=== PATIENT | female | born 1985 | race Caucasian/White ===

== ENCOUNTER 2019-05-05 10:37 | Inpatient (IN) | payer OTHER, SELFPAY ==
[2019-05-05] MEDS ORDERED: Promethazine HCl 25 MG/ML VIAL IM PRN ×3 (10:59→17:04)
[2019-05-05] MEDS ORDERED: Ondansetron PF 4 MG/2 ML Vial IVP PRN ×3 (10:59→17:04)
[2019-05-05] MEDS ORDERED: Lactated Ringer's 1,000 ML IV SCH (10:59)
[2019-05-05] MEDS ORDERED: Bicitra 30 ML UDCUP PO SCH (10:59)
[2019-05-05] MEDS ORDERED: CEFAZOLIN 2 GM in Premix Bag 1 BAG IVPB SCH (10:59)
[2019-05-05] MEDS ORDERED: hydrALAZINE 20 MG/ML VIAL SLOW IVP PRN ×2 (10:59→14:50)
[2019-05-05 11:19] VITALS: BMI 29.9
[2019-05-05 11:25] LABS: Hemoglobin 11.9 g/dL (12.0-16.0); Mean Corpuscular HGB CONC 33.9 g/dL (32.0-36.0); Mean Corpuscular Hemoglobin 31.8 pg (27.0-31.0); Mean Corpuscular Volume 93.8 fL (78.0-98.0); Mean Platelet Volume 8.4 fL (7.4-10.4); Platelet Count 196 thou/uL (130-400); RBC Distribution Width 15.3 % (11.5-14.5); Red Blood Cell (RBC) Count 3.74 mill/uL (4.20-5.40); White Blood Cell (WBC) Count 9.8 thou/uL (4.8-10.8)
[2019-05-05] MEDS ORDERED: FLU VACC QS2019-20(6MOS UP)/PF 60 MCG/0.5 ML SYRINGE IM ONE (11:45)
--- NOTE | 2019-05-05 12:02 | PDOC.LDHP ---
Labor and Delivery H&P Chief complaint: scheduled section HPI: 33yo A3 at 40w0d by first trimester sono for RCS. No complaints. Current gestational age (weeks): 40 Due date: 05/05/19 Dating criteria: first trimester ultrasound Grav: 7 Para: 3 OB History Details: hx of amniotic fluid embolism in first , intubated in ICU, DIC, transfusion 25U PRBC Current complications: none Abnormal US findings: No Past Medical History: denies Current medications: pre- vitamins, iron Previous surgical history: low tranverse CS Allergies/Adverse Reactions: Allergies Allergy/AdvReac Type Severity Reaction Status Date / Time No Known Allergies Allergy Unverified 05/05/19 11:02 Social history: none - Physical Exam Vital signs reviewed and normal: yes General: NAD Heart: RRR Lungs: CTAB Abdomen: gravid Extremeties: no edema FHT: category 1 [place] contractions every: none - OB Labs Blood type: O RH: negative Antibody Screen: negative HIV: negative RPR: negative HEPSAg: negative 1 hour GCT: positive 3 hour GTT: neg for GDM GBS: negative Urine drug screen: negative Rubella: immune - Assessment L&D Assessment: scheduled repeat section - Plan Plan: admit to L&D, to OR for section, informed consent obtained, anesthesia consult for pain management
--- NOTE | 2019-05-05 12:07 | PDOC.OPDEL ---
OB Operative/Delivery Note Delivery Dr/Surgeon: Carlos Assist: Beto Pre-Delivery Diagnosis: scheduled section Procedure/Post Delivery Dx: repeat low transverse CS Weeks gestation: 40 Anesthesia: spinal - Additional Findings/Plan Placenta delivered: spontaneous findings: low transverse hysterotomy without extension, normal uterus, normal tubes, normal ovaries Post delivery plan: routine recovery
[2019-05-05 12:09] LABS: HBSAg Index 0.17 S/CO (0-0.99); Hep B Surf Ag Non-Reactive S/CO (NonReactive); Syphilis Antibody Nonreactive (Nonreactive); Syphilis Antibody Index 0.03 S/CO (<1.00 Non-Reactive)
[2019-05-05] MEDS ORDERED: Oxytocin 10 UNITS/ML VIAL ONE (12:17)
[2019-05-05] MEDS ORDERED: MORPHINE 5 MG/10 ML PF VIAL ONE (12:17)
[2019-05-05] MEDS ORDERED: Ondansetron PF 4 MG/2 ML Vial ONE (12:18)
[2019-05-05] MEDS ORDERED: ePHEDrine/0.9% NaCl/PF SYRINGE 50 mg/10 ml ONE (12:18)
[2019-05-05] MEDS ORDERED: PHENYLEPHRINE-NS 100 MCG/ML 10 ML SYRINGE ONE (13:00)
[2019-05-05] MEDS ORDERED: Ketorolac Tromethamine 30 MG/ML VIAL ONE (13:08)
[2019-05-05] MEDS ORDERED: NS / Oxytocin 40 units/1000ml 1,000 ML ONE ×2 (14:04→14:05)
[2019-05-05] MEDS ORDERED: Bisacodyl 10 MG SUPP PR PRN (14:50)
[2019-05-05] MEDS ORDERED: Zolpidem Tartrate 5 MG TAB PO PRN (14:50)
[2019-05-05] MEDS ORDERED: HYDROcodone/Acetaminophen 5/325 mg Tablet PO PRN ×2 (14:50)
[2019-05-05] MEDS ORDERED: Acetaminophen 325 MG TAB PO PRN (14:50)
[2019-05-05] MEDS ORDERED: Lanolin Ointment 7 GM TUBE TOP PRN (14:50)
[2019-05-05] MEDS ORDERED: diphenhydrAMINE 25 MG CAP PO PRN (14:50)
[2019-05-05] MEDS ORDERED: Promethazine HCl 25 MG SUPP PR PRN (17:04)
[2019-05-05] MEDS ORDERED: Ondansetron HCl/PF 4 MG/2 ML Vial IVP PRN (17:04)
[2019-05-05] MEDS ORDERED: diphenhydrAMINE 50 MG/ML VIAL IVP PRN (17:04)
[2019-05-05] MEDS ORDERED: Naloxone HCl 0.4 mg/ml Vial IVP PRN ×2 (17:04)
[2019-05-05] MEDS ORDERED: Meperidine HCl/PF 25 MG/ML VIAL SLOW IVP PRN (17:04)
[2019-05-05] MEDS ORDERED: HYDROmorphone 2 MG/ML VIAL SLOW IVP PRN (17:04)
[2019-05-05] MEDS ORDERED: Naloxone HCl 0.4 mg/ml Vial IV PRN (17:04)
[2019-05-05] MEDS ORDERED: L&D-Morphine 4 MG/ML VIAL SLOW IVP PRN (17:04)
[2019-05-05] MEDS ORDERED: Ketorolac Tromethamine 30 MG/ML VIAL IVP SCH (17:15)
[2019-05-05] MEDS ORDERED: Communication Order-Pharmacy FS SCH (17:15)
[2019-05-05] MEDS: Docusate Calcium (SURFAK) 240 MG CAP PO SCH (19:33)
[2019-05-05] MEDS: Ketorolac Tromethamine 30 MG/ML VIAL IVP PRN (21:04)
[2019-05-06] MEDS: Ferrous Sulfate 325 MG TAB PO SCH ×3 (00:19→19:20)
[2019-05-06] MEDS: Ibuprofen 800 MG TAB PO SCH ×5 (00:20→17:49)
[2019-05-06] MEDS ORDERED: Sodium Chloride 0.9% 0 ML ONE (03:57)
[2019-05-06] MEDS: Ketorolac Tromethamine 30 MG/ML VIAL IVP PRN (04:03)
[2019-05-06] MEDS ORDERED: Sodium Chloride 0.9% 10 ML ONE (04:08)
[2019-05-06] MEDS ORDERED: Zolpidem Tartrate 5 MG TAB PO PRN (05:15)
[2019-05-06] MEDS ORDERED: HYDROcodone/Acetaminophen 5/325 mg Tablet PO PRN (05:15)
--- NOTE | 2019-05-06 05:32 | PDOC.PP ---
Post Progress Note Post Day #: 1 Subjective: Patient doing well. No significant overnight events. Patient tolerating PO, passing flatus, ambulating. Lochia minimal. PO intake tolerated: yes Flatus: yes Ambulation: yes Vital Signs (12 hours) Temp Pulse Resp BP Pulse Ox 05/05/19 23:30 98.7 F 88 16 125/68 05/05/19 19:40 98.7 F 99 16 117/60 98 05/05/19 17:55 99.1 F 85 12 115/59 L 95 Weight Weight 81.647 kg - Physical Examination General: NAD Cardiovascular: RRR Respiratory: non-labored breathing Abdominal: + bowel sounds, lochia (minimal), no distention, appropriately TTP Fundus firm & at: below umbilicus Deviation from normal: Pressure dressing in place of C/S incision. Dressing clean, dry, intact. Neurological: no gross focal deficits Psychiatric: A&Ox3, normal affect Result Diagrams: 05/05/19 11:13 Additional Labs: Post Labs Blood Type O NEGATIVE 05/05/19 11:45 Hep Bs Antigen Non-Reactive S/CO (NonReactive) 05/05/19 11:13 (1) Term Code(s): Z34.90 - ENCNTR FOR SUPRVSN OF NORMAL , UNSP, UNSP TRIMESTER Status: Acute (2) S/P repeat low transverse Code(s): Z98.891 - HISTORY OF UTERINE SCAR FROM PREVIOUS SURGERY Status: Acute - Assessment/Plan Routine PP care - Post-op day #1 s/p rLTCS - Meeting all milestones - Rh negative - GBS negative - Rubella immune - C/S pressure dressing in place. Clean and intact. - Encourage ambulation Hx amniotic fluid embolism in previous Dispo: Plan for D/C on Wednesday
[2019-05-06 08:08] LABS: Mean Corpuscular HGB CONC 33.6 g/dL (32.0-36.0); Mean Corpuscular Hemoglobin 31.6 pg (27.0-31.0); Mean Platelet Volume 8.3 fL (7.4-10.4); Platelet Count 169 thou/uL (130-400); RBC Distribution Width 15.2 % (11.5-14.5); Red Blood Cell (RBC) Count 3.49 mill/uL (4.20-5.40); White Blood Cell (WBC) Count 10.4 thou/uL (4.8-10.8)
[2019-05-06] MEDS ORDERED: Adacel (T-DAP) 0.5 ML SYRINGE IM ONE (09:00)
[2019-05-06] MEDS: Simethicone Chewable 80 MG TAB PO PRN ×3 (10:30→17:43)
[2019-05-06] MEDS: Prenatal Vitamin 1 TAB PO SCH (10:31)
[2019-05-06] MEDS: Docusate Calcium (SURFAK) 240 MG CAP PO SCH ×2 (10:31→19:20)
[2019-05-06] MEDS: HYDROcodone/Acetaminophen 5/325 mg Tablet PO PRN ×3 (14:06→21:20)
--- NOTE | 2019-05-06 15:58 | OP ---
DATE OF PROCEDURE: 05/05/2019 PREOPERATIVE DIAGNOSES: 1. Intrauterine at 40 weeks 0 days. 2. Prior x2. POSTOPERATIVE DIAGNOSES: 1. Intrauterine at 40 weeks 0 days. 2. Prior x2. PROCEDURE PERFORMED: Repeat low transverse section via Pfannenstiel skin incision. ANESTHESIA: Spinal. MANAGER FIELD SERVICE: Maegan Pérez DO ESTIMATED BLOOD LOSS: 700 mL. INTRAVENOUS FLUIDS: 1500 mL crystalloid. URINE OUTPUT: 500 mL clear urine. COMPLICATIONS: None. DRAINS: Spring catheter. PATHOLOGY: None. FINDINGS: Male infant, cephalic presentation, Apgars 9 and 9. Weight pending. Hysterotomy without extension. Normal uterus, ovaries, and tubes bilaterally. OPERATIVE TECHNIQUE: The patient was taken to the operating room, where spinal anesthesia was obtained without difficulty. The patient was prepped and draped in a sterile fashion in the dorsal supine position with a leftward tilt. After ensuring adequacy of anesthesia, a Pfannenstiel skin incision was made and carried down to the underlying subcutaneous tissue with the knife. The fascia was nicked in the midline with a knife and carried laterally with the Lowe scissors. The superior aspect of the fascia was tented with two Kamilla's and dissected off the rectus with the Lowe scissors. The inferior aspect of the fascia was tented with two Kamilla's and dissected off the rectus down the pubic symphysis. The peritoneum was bluntly entered into and manually retracted. The Willard O retractor was placed and the vesicouterine peritoneum was incised with the Metzenbaum's. Lower uterine segment was extremely thin and a window was present. The lower uterine segment was incised in a transverse fashion and extended with a Pena maneuver. The infant's head was brought to the hysterotomy and delivered with fundal pressure atraumatically. The infant's cord was clamped and handed to awaiting Stephon team. The placenta was allowed to spontaneously deliver. The uterus was exteriorized, cleared of all clots and debris, and the posterior cul-de-sac was left out. The uterus was placed back into the abdomen, and the hysterotomy was repaired with a #1 Monocryl in a running locking fashion with excellent hemostasis in reapproximation. The pelvis was copiously irrigated and suctioned, and hemostasis was again noted. The Willard O retractor was removed. The rectus muscles were examined and cauterized of any oozing. The fascia was reapproximated with a 0 PDS x2 sutures with excellent reapproximation. The subcutaneous tissue was irrigated and cauterized of any bleeders and reapproximated with a 2-0 plain gut in a running fashion. The skin was closed with 4-0 Monocryl in a subcuticular fashion. Dermabond was applied as well as pressure dressing. The patient tolerated the procedure well. Sponge, lap, and needle counts were correct x2. The patient was taken to recovery room in stable condition. The patient received Ancef 2 g prior to the procedure. Job ID: [id number]
[2019-05-07] MEDS: Ibuprofen 800 MG TAB PO SCH ×4 (01:58→21:03)
[2019-05-07] MEDS: HYDROcodone/Acetaminophen 5/325 mg Tablet PO PRN ×4 (01:58→19:38)
--- NOTE | 2019-05-07 06:39 | PDOC.PP ---
Post Progress Note Post Day #: 2 Subjective: Patient does not want males in room, so I rounded with the RN regarding her care PO intake tolerated: yes Flatus: yes Ambulation: yes Vital Signs (12 hours) Temp Pulse Resp BP Pulse Ox 05/07/19 03:40 98.1 F 76 18 115/62 05/07/19 00:40 98.2 F 77 16 122/59 L 05/06/19 19:55 98.8 F 83 16 110/60 97 Weight Weight 180 lb - Physical Examination General: NAD Cardiovascular: no m/r/g Respiratory: clear to auscultation bilaterally Abdominal: + bowel sounds, lochia, no distention, appropriately TTP Skin: CS incision dry & intact (Sutured incision) Neurological: no gross focal deficits Psychiatric: A&Ox3, normal affect Result Diagrams: 05/06/19 07:22 Additional Labs: Post Labs Blood Type O NEGATIVE 05/05/19 11:45 Hep Bs Antigen Non-Reactive S/CO (NonReactive) 05/05/19 11:13 (1) S/P repeat low transverse Code(s): Z98.891 - HISTORY OF UTERINE SCAR FROM PREVIOUS SURGERY Status: Acute - Assessment/Plan Repeat CS, POD 2. Patient desires stay until POD3. I did not se her as she does not want males to see her. i rounded via the RN and requested the RN tell her I rounded with her. Poss home tomorrow. Incision reported as C/D/I per RN and I recorded as such
[2019-05-07] MEDS ORDERED: FLU VACC QS2019-20(6MOS UP)/PF 60 MCG/0.5 ML SYRINGE IM ONE (09:00)
[2019-05-07] MEDS: Ferrous Sulfate 325 MG TAB PO SCH ×2 (10:33→20:35)
[2019-05-07] MEDS: Docusate Calcium (SURFAK) 240 MG CAP PO SCH ×2 (10:33→21:02)
[2019-05-07] MEDS: Prenatal Vitamin 1 TAB PO SCH (10:33)
[2019-05-08] MEDS: Ibuprofen 800 MG TAB PO SCH ×3 (05:05→21:41)
[2019-05-08] MEDS: HYDROcodone/Acetaminophen 5/325 mg Tablet PO PRN ×3 (05:06→21:44)
[2019-05-08] MEDS: Prenatal Vitamin 1 TAB PO SCH (08:38)
[2019-05-08] MEDS: Docusate Calcium (SURFAK) 240 MG CAP PO SCH ×2 (08:38→21:12)
[2019-05-08] MEDS: Ferrous Sulfate 325 MG TAB PO SCH ×2 (08:39→21:12)
--- NOTE | 2019-05-08 12:26 | PDOC.PP ---
Post Progress Note Post Day #: 3 PO intake tolerated: yes Flatus: yes Ambulation: yes Vital Signs (12 hours) Temp Pulse Resp BP Pulse Ox 05/08/19 08:08 98.2 F 80 20 123/69 96 Weight Weight 180 lb - Physical Examination General: NAD Respiratory: non-labored breathing Abdominal: no distention, appropriately TTP Fundus firm & at: umb-2 Skin: CS incision dry & intact Neurological: no gross focal deficits Psychiatric: normal affect Result Diagrams: 05/06/19 07:22 Additional Labs: Post Labs Blood Type O NEGATIVE 05/05/19 11:45 Hep Bs Antigen Non-Reactive S/CO (NonReactive) 05/05/19 11:13 - Assessment/Plan POD3 s/p RCS VSSAF Hgb 11 postop, no sx anemia, met all milestones Rh neg s/p RHIG, RImm Cont postop care, home tomorrow
[2019-05-08] MEDS: Simethicone Chewable 80 MG TAB PO PRN (13:41)
[2019-05-08 20:25] VITALS: TEMP 98.3
[2019-05-09] MEDS: Simethicone Chewable 80 MG TAB PO PRN (02:28)
[2019-05-09] MEDS: Ibuprofen 800 MG TAB PO SCH ×2 (05:11→13:40)
[2019-05-09] MEDS: HYDROcodone/Acetaminophen 5/325 mg Tablet PO PRN ×3 (05:12→13:39)
--- NOTE | 2019-05-09 08:11 | PDOC.PP ---
Post Progress Note Post Day #: 4 PO intake tolerated: yes Flatus: yes Ambulation: yes Vital Signs (12 hours) Pulse Ox 05/08/19 20:43 96 Weight Weight 180 lb - Physical Examination General: NAD Respiratory: non-labored breathing Abdominal: no distention, appropriately TTP Extremities: negative homans (B) Skin: CS incision dry & intact Neurological: no gross focal deficits Psychiatric: normal affect Result Diagrams: 05/06/19 07:22 Additional Labs: Post Labs Blood Type O NEGATIVE 05/05/19 11:45 Hep Bs Antigen Non-Reactive S/CO (NonReactive) 05/05/19 11:13 - Assessment/Plan POD4 s/p RCS VSSAF Doing well, pain controlled Home today with pain meds.
[2019-05-09 08:12] VITALS: BP 109/70
[2019-05-09] MEDS: Prenatal Vitamin 1 TAB PO SCH (08:51)
[2019-05-09] MEDS: Docusate Calcium (SURFAK) 240 MG CAP PO SCH (08:51)
[2019-05-09] MEDS: Ferrous Sulfate 325 MG TAB PO SCH (08:53)
== END 2019-05-09 16:45 | disposition home or self-care (01) | DRG 788 ==
LOC: L&D-LIB 10:37 → 3SW 16:20
PROVIDERS: ADMIT Student in an Organized Health Care Education/Training Program; ATTEND Student in an Organized Health Care Education/Training Program
PROC: 10D00Z1 Extraction of Products of Conception, Low, Open Approach (ICD-10-PCS; principal; 2019-05-05)
DX: O34.211 Maternal care for low transverse scar from previous cesarean delivery (principal); O48.0 Post-term pregnancy; Z3A.40 40 weeks gestation of pregnancy; Z37.0 Single live birth
CPT/HCPCS: 36415; 36416; 51702; 85027; 85461; 86780; 86850; 86900; 86901; 87340; 90384; 96372; J0690; J1885; J2274; J2405; J2590; Q0163